=== PATIENT | female | born 1980 | race Caucasian/White ===

== ENCOUNTER 2017-08-06 21:19 | Emergency (ER) | payer OTHER ==
[2017-08-06 21:19] VITALS: BMI 22.8
[2017-08-06] MEDS ORDERED: Sodium Chloride 0.9% 1,000 ML IV STA (21:37)
--- NOTE | 2017-08-06 21:42 | ED PDOC ---
Arrival/HPI - General Chief Complaint: Female Genitourinary Time Seen by Provider: 08/06/17 21:20 Historian: Patient - History of Present Illness Narrative History of Present Illness (Text): 08/06/17 21:35 Nadeen Forman is a 37 year old female, whose past medical history includes a C- ection, who presents to the Emergency department complaining of dysuria today. Patient reports associated suprapubic abdominal discomfort, urinary urgency, and lower back discomfort. Patient denies any fever, chills, nausea, vomiting, diarrhea, neck pain, dizziness, or any other complaints. Time/Duration: Other (today) Symptom Onset: Gradual Symptom Course: Unchanged Activities at Onset: Light Context: Home Past Medical History - Provider Review Nursing Documentation Reviewed: Yes - Infectious Disease Hx of Infectious Diseases: None - Psychiatric Hx Substance Use: No - Surgical History Hx Section: Yes - Anesthesia Hx Anesthesia: Yes Hx Anesthesia Reactions: No Hx Malignant Hyperthermia: No Family/Social History - Physician Review Nursing Documentation Reviewed: Yes Family/Social History: Unknown Family HX Smoking Status: Never Smoked Hx Alcohol Use: No Hx Substance Use: No Allergies/Home Meds Allergies/Adverse Reactions: Allergies No Known Allergies Allergy (Verified 05/09/16 20:23) Review of Systems - Physician Review All systems were reviewed & negative as marked: Yes - Review of Systems Constitutional: Normal. absent: Fevers Eyes: Normal ENT: Normal Respiratory: Normal. absent: SOB, Cough Cardiovascular: Normal. absent: Chest Pain Gastrointestinal: Abdominal Pain. absent: Diarrhea, Nausea, Vomiting Genitourinary Female: Dysuria, Frequency. absent: Hematuria, Urine Output Changes Musculoskeletal: Back Pain. absent: Neck Pain Skin: Normal. absent: Rash Neurological: Normal. absent: Headache, Dizziness Endocrine: Normal Hemo/Lymphatic: Normal Psychiatric: Normal Physical Exam Vital Signs Reviewed: Yes Vital Signs Temp Pulse Resp BP Pulse Ox 08/06/17 22:15 99.7 F H 92 H 18 115/74 99 Temperature: Afebrile Blood Pressure: Normal Pulse: Regular Respiratory Rate: Normal Appearance: Positive for: Well-Appearing, Non-Toxic, Comfortable Pain Distress: None Mental Status: Positive for: Alert and Oriented X 3 - Systems Exam Head: Present: Atraumatic, Normocephalic Pupils: Present: PERRL Extroacular Muscles: Present: EOMI Conjunctiva: Present: Normal Mouth: Present: Moist Mucous Membranes Neck: Present: Normal Range of Motion Respiratory/Chest: Present: Clear to Auscultation, Good Air Exchange. No: Respiratory Distress, Accessory Muscle Use Cardiovascular: Present: Regular Rate and Rhythm, Normal S1, S2. No: Murmurs Abdomen: Present: Normal Bowel Sounds. No: Tenderness, Distention, Peritoneal Signs Back: Present: Normal Inspection. No: CVA Tenderness, Midline Tenderness, Paraspinal Tenderness Upper Extremity: Present: Normal Inspection. No: Cyanosis, Edema Lower Extremity: Present: Normal Inspection. No: Edema Neurological: Present: GCS=15, CN II-XII Intact, Speech Normal Skin: Present: Warm, Dry, Normal Color. No: Rashes Psychiatric: Present: Alert, Oriented x 3, Normal Insight, Normal Concentration Medical Decision Making ED Course and Treatment: 08/06/17 21:47 Impression: 37 year old female presents to the emergency department with dysuria, suprapubic abdominal pain, and lower back pain. Differential Diagnosis included but are not limited to: Plan: -- Labs -- Urinalysis -- IV fluids -- Reassess and disposition Progress Notes: 08/07/17 00:55 CT abdomen, pelvis reviewed: Limitations: Motion artifact - mild. Lower thorax: Minimal atelectasis. ABDOMEN: Liver: < 0.5 cm lesion. Gallbladder and bile ducts: No calcified stones. No ductal dilation. Pancreas: No ductal dilation. No mass. Spleen: No splenomegaly. Adrenals: No mass. Kidneys and ureters: Few questionable faint minimal peripheral areas of decreased attenuation versus artifact within kidneys, right greater than left. Minimal pelvocaliectasis of kidneys, right greater than left. Apparent mild urothelial enhancement of right renal pelvis and ureter. Stomach and bowel: No definite mural thickening. No obstruction. Appendix: No definite findings to suggest acute appendicitis. PELVIS: Bladder: Unremarkable. Reproductive: IUD. 1.8 x 1.9 x 1.9 cm hypodense lesion within LEFT ovary. ABDOMEN and PELVIS: Intraperitoneal space: Trace free fluid within pelvis. No free air. Bones/joints: No acute fracture. Soft tissues: Breast implants. Tiny umbilical hernia containing fat. Vasculature: Unremarkable. No aneurysm. Lymph nodes: No pathologically enlarged lymph nodes. IMPRESSION: 1. Questionable early pyelonephritis/ureteritis. Correlate with urinalysis to exclude infection. 2. Probable LEFT ovarian cyst. Consider ultrasound. 3. Liver lesion. For patients with low to average risk of malignancy, no further follow-up is necessary. For patients with high risk of malignancy (known malignancy that can metastasize or other risk factors), recommend follow-up abdominal CT or MR in 6 months. 4. Incidental/non-acute findings are described above. 08/07/17 01:14 On re-evaluation, patient feels better and is in no acute distress. I have discussed the results and plan with the patient, who expresses understanding. Patient in agreement with plan to be discharged home. Patient is stable for discharge. Patient was instructed to follow up with physician or return if symptoms worsen or new concerning symptoms arise. - Lab Interpretations Lab Results: 08/06/17 21:55 08/06/17 21:55 Lab Results 08/06/17 21:55: WBC 11.3 H, RBC 3.98, Hgb 12.4, Hct 37.9, MCV 95.2, MCH 31.2, MCHC 32.7, RDW 12.5, Plt Count 233, MPV 10.7 08/06/17 21:55: Sodium 140, Potassium 3.7, Chloride 103, Carbon Dioxide 24, Anion Gap 16, BUN 16, Creatinine 0.8, Est GFR ( Amer) > 60, Est GFR (Non- Af Amer) > 60, Random Glucose 92, Calcium 9.2, Total Bilirubin 0.4, AST 20, ALT 24, Alkaline Phosphatase 53, Total Protein 7.0, Albumin 3.9, Globulin 3.2, Albumin/Globulin Ratio 1.2 08/06/17 21:40: Urine Color Light yellow, Urine Appearance Sl cloudy, Urine pH 6.5, Ur Specific [place] 1.010, Urine Protein Trace H, Urine Glucose (UA) Negative, Urine Ketones Negative, Urine Blood Large H, Urine Nitrate Negative, Urine Bilirubin Negative, Urine Urobilinogen 0.2, Ur Leukocyte Esterase Large H , Urine RBC 15 - 20, Urine WBC 10 - 15, Ur Epithelial Cells 4 - 5, Urine Bacteria Many, Urine HCG, Qual Negative I have reviewed the lab results: Yes - RAD Interpretation Radiology Orders: 08/06/17 23:01 ABD & PELVIS IV CONTRAST ONLY [CT] 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 - Medication Orders Current Medication Orders: Ceftriaxone Sodium (Rocephin 1 Gram Ivpb) 1 gm in 100 mls @ 200 mls/hr IV ONCE STA PRN Reason: Protocol Stop: 08/07/17 01:30 Phenazopyridine HCl (Pyridium) 200 mg PO PC STA Stop: 08/07/17 01:14 Discontinued Medications Sodium Chloride (Sodium Chloride 0.9%) 1,000 mls @ 999 mls/hr IV .Q1H1M STA Stop: 08/06/17 22:37 Last Admin: 08/06/17 22:00 Dose: 999 mls/hr eMAR Start Stop Document 08/06/17 22:00 JOL (Rec: 08/06/17 22:11 JOL [id number]) Intravenous Solution Start Date 08/06/17 Start Time 22:00 End Date 08/06/17 End time 23:01 Total Infusion Time 61 - Scribe Statement The provider has reviewed the documentation as recorded by the [employer] Patel training under Sarita Barber All medical record entries made by the Scribe were at my direction and personally dictated by me. I have reviewed the chart and agree that the record accurately reflects my personal performance of the history, physical exam, medical decision making, and the department course for this patient. I have also personally directed, reviewed, and agree with the discharge instructions and disposition. Disposition/Present on Arrival - Present on Arrival Any Indicators Present on Arrival: No History of DVT/PE: No History of Uncontrolled Diabetes: No Urinary Catheter: No History Surgical Site Infection Following: None - Disposition Have Diagnosis and Disposition been Completed?: Yes Diagnosis: UTI (urinary tract infection) Disposition: HOME/ ROUTINE Disposition Time: 01:08 Patient Plan: Discharge Patient Problems: Current Active Problems Problem Status Onset UTI (urinary tract infection) Acute Condition: GOOD Discharge Instructions (ExitCare): Urinary Tract Infection in Women (ED) Additional Instructions: Drink plenty of liquids/take meds as prescribed/follow up with this week for follow up re-evaluation.Any fever/worsening symptoms return to the emergency room Prescriptions: Cephalexin [cephalexin] 500 mg PO BID #14 cap Phenazopyridine [Pyridium] 200 mg PO TID #15 tab Referrals: Angelo Gloria JD, MD [Primary Care Provider] - Follow up with primary Forms: [employer] (Kosovan)
[2017-08-06 21:56] LABS: PH,URINE 6.5 (4.7-8.0); URINE BILIRUBIN NEGATIVE (NEGATIVE); URINE BLOOD LARGE (NEGATIVE); URINE GLUCOSE (UA) NEGATIVE (NEGATIVE); URINE LEUKOCYTE ESTERASE LARGE Leu/uL (NEGATIVE); URINE NITRATE NEGATIVE (NEGATIVE); URINE PROTEIN TRACE mg/dL (<30 mg/dL); URINE UROBILINOGEN 0.2 E.U./dL (<1 E.U./dL)
[2017-08-06 22:00] LABS: URINE APPEARANCE SL CLOUDY (CLEAR); URINE COLOR LIGHT YELLOW (YELLOW)
[2017-08-06 22:16] VITALS: RESP 18; O2SAT 99
[2017-08-06 22:21] LABS: HEMOGLOBIN 12.4 g/dL (12.0-16.0); MEAN CELL VOLUME 95.2 fl (80.0-105.0); MEAN CORPUSCULAR HEMOGLOBIN 31.2 pg (25.0-35.0); MEAN CORPUSCULAR HGB CONC 32.7 g/dl (31.0-37.0); MEAN PLATELET VOLUME 10.7 fl (7.0-11.0); RBC 3.98 10^6/uL (3.5-6.1); RED CELL DISTRIBUTION WIDTH 12.5 % (11.5-14.5); WHITE BLOOD COUNT 11.3 10^3/ul (4.5-11.0)
[2017-08-06 22:28] LABS: ALB/GLOB RATIO 1.2 (1.1-1.8); ALBUMIN 3.9 g/dL (3.0-4.8); ALT/SGPT 24 U/L (7-56); AST/SGOT 20 U/L (14-36); BLOOD UREA NITROGEN 16 mg/dL (7-21); CALCIUM 9.2 mg/dL (8.4-10.5); GFR AFRICAN-AMERICAN > 60; GFR NON-AFRICAN AMERICAN > 60
[2017-08-06 22:35] LABS: URINE BACTERIA MANY (NEG); URINE RBC 15 - 20 /hpf (0-2)
[2017-08-06] MEDS ORDERED: Iohexol 350 MG/100 ML VIAL ONE (23:18)
[2017-08-06 23:23] LABS: HCG,QUALITATIVE URINE NEGATIVE (NEGATIVE)
--- NOTE | 2017-08-07 00:54 | CT ---
EXAM: CT Abdomen and Pelvis With Intravenous Contrast CLINICAL HISTORY: 37 years old, female; Pain; Abdominal pain; Acute TECHNIQUE: Axial computed tomography images of the abdomen and pelvis with intravenous contrast. All CT scans at this facility use one or more dose reduction techniques, viz.: automated exposure control; ma/kV adjustment per patient size (including targeted exams where dose is matched to indication; i.e. head); or iterative reconstruction technique. CONTRAST: 100 mL of OMNI 350 administered intravenously. COMPARISON: No relevant prior studies available. FINDINGS: Limitations: Motion artifact - mild. Lower thorax: Minimal atelectasis. ABDOMEN: Liver: < 0.5 cm lesion. Gallbladder and bile ducts: No calcified stones. No ductal dilation. Pancreas: No ductal dilation. No mass. Spleen: No splenomegaly. Adrenals: No mass. Kidneys and ureters: Few questionable faint minimal peripheral areas of decreased attenuation versus artifact within kidneys, right greater than left. Minimal pelvocaliectasis of kidneys, right greater than left. Apparent mild urothelial enhancement of right renal pelvis and ureter. Stomach and bowel: No definite mural thickening. No obstruction. Appendix: No definite findings to suggest acute appendicitis. PELVIS: Bladder: Unremarkable. Reproductive: IUD. 1.8 x 1.9 x 1.9 cm hypodense lesion within LEFT ovary. ABDOMEN and PELVIS: Intraperitoneal space: Trace free fluid within pelvis. No free air. Bones/joints: No acute fracture. Soft tissues: Breast implants. Tiny umbilical hernia containing fat. Vasculature: Unremarkable. No aneurysm. Lymph nodes: No pathologically enlarged lymph nodes. IMPRESSION: 1. Questionable early pyelonephritis/ureteritis. Correlate with urinalysis to exclude infection. 2. Probable LEFT ovarian cyst. Consider ultrasound. 3. Liver lesion. For patients with low to average risk of malignancy, no further follow-up is necessary. For patients with high risk of malignancy (known malignancy that can metastasize or other risk factors), recommend follow-up abdominal CT or MR in 6 months. 4. Incidental/non-acute findings are described above.
[2017-08-07] MEDS ORDERED: cefTRIAXone 1 gm 1 GM/100 ML BAG IV STA (01:01)
[2017-08-07 02:26] VITALS: BP 121/74; PULSE 87; TEMP 98.9
== END 2017-08-07 02:24 | disposition home or self-care (01) ==
LOC: ED 21:19
DX: N39.0 Urinary tract infection, site not specified (principal)
CPT/HCPCS: 74177; 80053; 81001; 84703; 85027; 87086; 96360; 99285; J0696; J7040; Q9967